=== PATIENT | female | born 1970 | race Hispanic/Latino ===

== ENCOUNTER 2018-07-22 15:46 | Emergency (ER) | payer OTHER ==
[~2018-07-22] VITALS: Ht 170.2 cm; Wt 76.2 kg
[~2018-07-22 15:46] MED LIST: TYLENOL WITH C1 EACH PO
--- OUTSIDE RECORDS SUMMARY | 2018-07-22 15:49 | XMS REPORT | Clinical Summary ---
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 Active escitalopram (LEXAPRO) 20 TAKE ONE (1) 5 MG tablet TABLET(S) BY 8 MOUTH ONCE A DAY FOR 30 DAYS. Active MINIVELLE 0.0375 mg/24 hr APPLY ONE (1) 11 PATCH(ES) TO 8 SKIN TWO TIMES WEEKLY. Active omeprazole (PriLOSEC) 40 TAKE ONE (1) 5 MG capsule CAPSULE(S) BY 8 MOUTH ONCE A DAY. Active zolpidem (AMBIEN) 10 mg TAKE ONE (1) 0 tablet TABLET(S) BY 8 MOUTH NIGHTLY NEEDED. Active SUMAtriptan (IMITREX) 100 TAKE ONE (1) 5 MG tablet TABLET(S) BY 8 MOUTH ONCE A DAY NEEDED. Active METHYLSCOPOLAMINE NITRATE 0 (METHSCOPOLAMINE NITRATE, BULK,) 100 % powder Active atorvastatin (LIPITOR) 20 Take 20 mg by 0 MG tablet mouth daily. Default OP ins 10/27/2018 Active montelukast (SINGULAIR) Take 1 tablet 30 tablet 3 10 mg tablet (10 mg total) 8 by mouth nightly. 09/12/2017 methylPREDNISolone follow 21 tablet 0 (MEDROL DOSEPAK) 4 mg package 7 tablet directions 09/25/2017 amoxicillin-pot Take 1 tablet 20 tablet 0 clavulanate (AUGMENTIN) by mouth 2 8 875-125 mg per (two) times a tabletIndications: day for 10 Hoarseness, Chronic cough days. 10/15/2017 benzonatate (TESSALON Take 1 30 capsule 1 PERLES) 100 MG capsule (100 8 capsuleIndications: mg total) by Chronic cough mouth 3 (three) times a day as needed for cough for up to 30 days. 11/03/2017 clindamycin (CLEOCIN HCL) Take 1 21 capsule 0 300 MG capsule capsule (300 8 mg total) by mouth 3 (three) times a day for 7 days. 11/03/2017 mupirocin (BACTROBAN) 2 % Apply 20 g 1 ointment topically 3 8 (three) times a day for 7 days. 05/10/2018 cefpodoxime (VANTIN) 200 Take 1 tablet 14 tablet 0 MG tablet (200 mg 8 total) by mouth 2 (two) times a day for 7 days. Active Problems Problem Noted Date Diffuse cellulitis of face 10/27/2017 Chronic cough 09/15/2017 Hoarseness 09/08/2017 Encounters Care Team Description Date Type Specialty Inna Serna MD Dysuria (Primary Dx); Recurrent UTI (urinary tract infection); Urgency incontinence; OAB (overactive bladder) 05/16/2018 Procedure visit Urology Sue Michael MA Recurrent UTI (Primary Dx) 05/03/2018 Telephone Urology Inna Serna MD IZA (stress urinary incontinence, female) (Primary Dx); OAB (overactive bladder); Urinary frequency; Hypertonicity of bladder; Left upper quadrant pain; Recurrent UTI (urinary tract infection); Calculus of kidney 04/30/2018 Office Visit Urology Inna Serna MD 04/17/2018 Telephone Urology Calderon Palacios MD Hoarseness (Primary Dx); Diffuse cellulitis of face 10/27/2017 Office Visit Otolaryngology Cash Calvillo MD 10/18/2017 Anesthesia General Surgery Event Calderon Palacios MD LARYNGOSCOPY, MICRO DIRECT W/ BIOPSY 10/18/2017 Surgery General Surgery Calderon Palacios MD Preop testing 10/18/2017 [facility] General Surgery Encounter Calderon Palacios MD 10/17/2017 Hospital Radiology Encounter Calderon Palacios MD Preop testing (Primary Dx) 10/17/2017 Pre-Admit Pre-Admission Testing Testing Appointment Calderon Palacios MD Hoarseness (Primary Dx); Chronic cough 10/02/2017 Office Visit Otolaryngology Calderon Palacios MD Hoarseness (Primary Dx); Chronic cough 09/15/2017 Office Visit Otolaryngology Calderon Palacios MD Hoarseness (Primary Dx) 09/08/2017 Office Visit Otolaryngology Rob Gray MD Sore throat (Primary Dx) 09/07/2017 Emergency Emergency Medicine after 07/21/2017 Family History Medical History Relation Name Comments Thyroid cancer Father Cancer Mother Diabetes Mother Heart disease Mother Hypertension Mother Relation Name Status Comments Father Alive Mother Alive Social History Date Tobacco Use Types Packs/Day Years Used Former Smoker Cigarettes 1 15 Smokeless Tobacco: Never Used Alcohol Use Drinks/Week oz/Week Comments No Sex Assigned at Date Recorded Not on file Industry Job Start Date Occupation Not on file Not on file Not on file Travel End Travel History Travel Start No recent travel history available. Last Filed Vital Signs Time Taken Vital Sign Reading 10/18/2017 1:23 PM LEGAL SUPPORT SPECIALIST Blood Pressure 134/74 10/18/2017 1:23 PM LEGAL SUPPORT SPECIALIST Pulse 61 10/18/2017 12:36 PM LEGAL SUPPORT SPECIALIST Temperature 36.8 C (98.2 F) 10/18/2017 1:23 PM LEGAL SUPPORT SPECIALIST Respiratory Rate 15 10/18/2017 1:23 PM LEGAL SUPPORT SPECIALIST Oxygen Saturation 98% - Inhaled Oxygen - Concentration 10/18/2017 9:04 AM LEGAL SUPPORT SPECIALIST Weight 77 kg (169 lb 11.2 oz) 10/18/2017 9:04 AM LEGAL SUPPORT SPECIALIST Height 170.2 cm (5' 7") 10/18/2017 9:04 AM LEGAL SUPPORT SPECIALIST Body Mass Index 26.58 Plan of Treatment Health Maintenance Due Date Last Done Comments CERVICAL CANCER SCREENING 1993 INFLUENZA VACCINE 04/11/2018 Procedures Comments Procedure Name Priority Date/Time Associated Diagnosis URINE CULTURE Routine 05/16/2018 Dysuria 2:17 PM CDT POC UROFLOWMETRY Routine 05/16/2018 Dysuria 2:16 PM CDT [id number] Routine 05/16/2018 Dysuria 2:16 PM CDT POC URINALYSIS DIPSTICK Routine 05/16/2018 Dysuria 12:49 PM CDT URINALYSIS, AUTOMATED Routine 04/30/2018 IZA (stress urinary WITH MICROSCOPY 1:39 PM CDT incontinence, female) URINE CULTURE Routine 04/30/2018 IZA (stress urinary 1:39 PM CDT incontinence, female) [id number] Routine 04/30/2018 IZA (stress urinary 12:27 PM CDT incontinence, female) POC URINALYSIS DIPSTICK Routine 04/30/2018 IZA (stress urinary 12:26 PM CDT incontinence, female) SURGICAL PATHOLOGY Routine 10/18/2017 REQUEST 11:47 AM LEGAL SUPPORT SPECIALIST SD AN ELECTIVE Routine 10/18/2017 ENDOTRACHEAL AIRWAY 11:43 AM LEGAL SUPPORT SPECIALIST Procedure Note - Donavon Holt CRNA - 10/18/2017 11:42 AM LEGAL SUPPORT SPECIALIST Airway Date/Time: 10/18/2017 1:36 AM Performed by: DONAVON HOLT Authorized by: CASH CALVILLO Location: OR Urgency: Elective Difficult Airway: No Anesthesio logist: CASH CALVILLO Resident/C RNA/AA: DONAVON HOTL Performed by: resident/C RNA and resident/C RNA/AA Preoxygena randy with 100% O2: Yes C-spine Precaution s Maintained Throughout : Yes Mask Ventilatio n: Easy mask Final Airway Type: Endotrache al airway Final Endotrache al Airway: ETT Cuffed: Yes Technique Used: Direct laryngosco py Insertion Site: Oral Blade Type: Burton Laryngosco pe Blade/Vide olaryngosc ope Blade Size: 2 ETT Size (mm): 6.0 Cuff at minimum occlusion pressure: Yes Measured from: Lips ETT to Lips (cm): 22 Placement Verified by: CO2 detection, direct visualizat ion and equal breath sounds Laryngosco pic view: Grade IIa - partial view of glottis Rapid Sequence Induction (RSI): No Modified RSI: No Number of Attempts at Approach: 1 Teeth intact, atraumatic intubation LARYNGOSCOPY, DIRECT 10/18/2017 HOARSENESS 10:45 AM LEGAL SUPPORT SPECIALIST R49.0 ECG 12-LEAD Routine 10/17/2017 Preop testing 1:45 PM LEGAL SUPPORT SPECIALIST XR CHEST 2 VW Routine 10/17/2017 Preop testing 1:16 PM LEGAL SUPPORT SPECIALIST PARTIAL THROMBOPLASTIN Routine 10/17/2017 Preop testing TIME (PTT) 12:26 PM LEGAL SUPPORT SPECIALIST PROTHROMBIN TIME WITH INR Routine 10/17/2017 Preop testing 12:26 PM LEGAL SUPPORT SPECIALIST CBC HEMOGRAM Routine 10/17/2017 Preop testing 12:26 PM LEGAL SUPPORT SPECIALIST ECG ED PRELIMINARY Routine 09/07/2017 INTERPRETATION 9:53 PM LEGAL SUPPORT SPECIALIST STREP SCREEN CULTURE Routine 09/07/2017 9:43 PM LEGAL SUPPORT SPECIALIST XR CHEST 2 VW STAT 09/07/2017 5:18 PM LEGAL SUPPORT SPECIALIST ECG 12-LEAD STAT 09/07/2017 5:01 PM LEGAL SUPPORT SPECIALIST URINALYSIS SCREEN AND STAT 09/07/2017 MICROSCOPY, WITH REFLEX 4:57 PM LEGAL SUPPORT SPECIALIST TO CULTURE HCG QUALITATIVE, URINE STAT 09/07/2017 SCREEN 4:57 PM LEGAL SUPPORT SPECIALIST URINE CULTURE STAT 09/07/2017 4:57 PM LEGAL SUPPORT SPECIALIST ZZESTIMATED GFR STAT 09/07/2017 4:50 PM LEGAL SUPPORT SPECIALIST TROPONIN STAT 09/07/2017 4:50 PM LEGAL SUPPORT SPECIALIST B NATRIURETIC PEPTIDE STAT 09/07/2017 4:50 PM LEGAL SUPPORT SPECIALIST MAGNESIUM LEVEL STAT 09/07/2017 4:50 PM LEGAL SUPPORT SPECIALIST HC COMPLETE BLD COUNT STAT 09/07/2017 W/AUTO DIFF 4:50 PM LEGAL SUPPORT SPECIALIST BASIC METABOLIC PANEL STAT 09/07/2017 4:50 PM LEGAL SUPPORT SPECIALIST GROUP A STREP, RAPID Routine 09/07/2017 ANTIGEN 4:50 PM LEGAL SUPPORT SPECIALIST INFLUENZA ANTIGEN Routine 09/07/2017 4:50 PM LEGAL SUPPORT SPECIALIST after 07/21/2017 Results * Urine culture (05/16/2018 2:17 PM CDT) Only the most recent of 3 results within the time period is included. Urine culture SEE NOTE [facility] Comment: [place] CULTURE, URINE, ROUTINE MICRO NUMBER:[id number] TEST STATUS: FINAL SPECIMEN SOURCE: URINE SPECIMEN QUALITY:ADEQUATE RESULT: Multiple organisms present, each less than 10,000 CFU/mL. These organisms, commonly found on external and internal genitalia, are considered to be colonizers. No further testing performed. Specimen Urine Resulting Agency Comment Performing Organization Information: Site ID: [id number] Name: [facility] Address: [address] [place] [id number] Director: Donna Christiansen Performing Organization Address City/State/Zipcode [place] [address] * POC BLADDER SCAN/PVR (05/16/2018 2:16 PM CDT) Only the most recent of 2 results within the time period is included. Specimen Urine Impressions Performed At P[facility]- 15 * POC uroflowmetry (05/16/2018 2:16 PM CDT) Flow rate 176 ml/sec Specimen Urine * POC urinalysis dipstick (05/16/2018 12:49 PM CDT) Only the most recent of 2 results within the time period is included. Color urine, POC Yellow Clarity urine, POC Clear Glucose urine, POC Negative Negative Bilirubin urine, POC Negative Negative Ketones urine, POC Negative Negative Specific gravity urine, 1.025 1.005 - 1.030 POC Blood urine, POC Trace (A) Negative pH urine, POC 6.5 5.0, 5.5, 6.0, 6.5, 7.0, 7.5, 8.0, 8.5 Protein urine, POC Negative Negative Urobilinogen urine, POC <2.0 <2.0 Nitrite urine, POC Negative Negative Leukocyte esterase urine, Negative Negative POC Specimen Urine * Urinalysis, automated with microscopy (04/30/2018 1:39 PM CDT) Color, UA ORANGE (A) YELLOW [facility] [place] Appearance TURBID (A) CLEAR [facility] [place] Specific gravity, urine 1.023 1.001 - 1.035 [facility] [place] pH, urine 6.0 5.0 - 8.0 [facility] [place] Glucose, urine TRACE (A) NEGATIVE [facility] [place] Bilirubin, UA NEGATIVE NEGATIVE [facility] [place] Ketones, UA NEGATIVE NEGATIVE [facility] [place] Occult blood, urine NEGATIVE NEGATIVE [facility] [place] Protein, UA NEGATIVE NEGATIVE [facility] [place] Nitrite, UA POSITIVE (A) NEGATIVE [facility] [place] Leukocyte esterase, UA NEGATIVE NEGATIVE [facility] [place] WBC, UA 0-5 < OR=5 /HPF [facility] [place] RBC, UA 0-2 < OR=2 /HPF [facility] [place] Squamous epithelial 0-5 < OR=5 /HPF [facility] cells, UA [place] Bacteria, UA MANY (A) NONE SEEN /HPF [facility] [place] Calcium oxalate crystals, FEW NONE OR FEW /HPF [facility] UA [place] Hyaline casts, UA NONE SEEN NONE SEEN /LPF [facility] [place] Specimen Urine Resulting Agency Comment Performing Organization Information: Site ID: [id number] Name: [facility] Address: [address] [place] [id number] Director: Donna Christiansen Performing Organization Address City/[facility] Phone Number [facility] [place] [phone] * Surgical pathology request (10/18/2017 11:47 AM LEGAL SUPPORT SPECIALIST) Case number [facility] DEPARTMENT OF PATHOLOGY AND GENOMIC MEDICINE Surgical pathology report [facility] DEPARTMENT OF PATHOLOGY AND GENOMIC MEDICINE Result status [facility] DEPARTMENT OF PATHOLOGY AND GENOMIC MEDICINE Performing Organization Address City/State/[facility] Cent[facility] Phone Number [address] [place] [address] PATHOLOGY AND GENOMIC MEDICINE * ECG 12 lead (10/17/2017 1:45 PM LEGAL SUPPORT SPECIALIST) Only the most recent of 2 results within the time period is included. Ventricular rate HM MUSE Atrial rate [facility] MUSE SD interval [facility] MUSE QRSD interval [facility] MUSE QT interval [facility] MUSE QTC interval [facility] MUSE P axis 1 [facility] MUSE QRS axis 1 [facility] MUSE T wave axis [facility] MUSE EKG impression [facility] MUSE Performing Organization Address [facility] Cent[facility]ode Phone Number [facility] MUSE [address] [place] [address] * XR Chest 2 Vw (10/17/2017 1:16 PM LEGAL SUPPORT SPECIALIST) Only the most recent of 2 results within the time period is included. Narrative Performed At EXAMINATION:XR CHEST 2 VW [facility] CLINICAL HISTORY:Z01.818 Encounter for other preprocedural examination, preop COMPARISON:September 07, 2017 FINDINGS: The heart size is within normal limits. The mediastinum appears unremarkable. The lungs are free of acute abnormalities. IMPRESSION: No acute finding is visualized [id number] Procedure Note Interface, Radiology Results Incoming - 10/17/2017 1:32 PM LEGAL SUPPORT SPECIALIST EXAMINATION: XR CHEST 2 VW CLINICAL HISTORY: Z01.818 Encounter for other preprocedural examination, preop COMPARISON: September 07, 2017 FINDINGS: The heart size is within normal limits. The mediastinum appears unremarkable. The lungs are free of acute abnormalities. IMPRESSION: No acute finding is visualized [id number] Performing Organization Address [facility] Phone Number [facility] [address] [place] [address] * Partial thromboplastin time, activated (10/17/2017 12:26 PM LEGAL SUPPORT SPECIALIST) PTT Comment: 23.0 - 36.0 sec [facility] DEPARTMENT OF PTT therapeutic range for PATHOLOGY AND unfractionated heparin is GENOMIC MEDICINE 61.0-112.0 seconds which corresponds to Anti-Xa 0.3-0.7 U/ml. Specimen Blood Performing Organization Address [facility] Phone Number [facility] DEPARTMENT [address] [place] [address] PATHOLOGY AND GENOMIC MEDICINE * Prothrombin time with INR (10/17/2017 12:26 PM LEGAL SUPPORT SPECIALIST) Prothrombin time 12.0 - 15.0 sec [facility] DEPARTMENT OF PATHOLOGY AND GENOMIC MEDICINE INR Comment: [facility] DEPARTMENT OF The International Normalized PATHOLOGY AND Ratio (INR) is a therapeutic GENOMIC MEDICINE monitoring tool for patients who are stable on oral anticoagulant therapy. An INR of 2.0-3.0 is suggested for deep vein thrombosis/pulmonary embolism. Specimen Blood Performing Organization Address [facility] Phone Number [facility] DEPARTMENT [address] [place] [address] PATHOLOGY [facility] MEDICINE * CBC hemogram (10/17/2017 12:26 PM LEGAL SUPPORT SPECIALIST) WBC 4.50 - 11.00 k/uL [facility] DEPARTMENT OF PATHOLOGY AND GENOMIC MEDICINE RBC 4.20 - 5.50 m/uL [facility] DEPARTMENT OF PATHOLOGY AND GENOMIC MEDICINE HGB 12.0 - 16.0 g/dL [facility] DEPARTMENT OF PATHOLOGY AND GENOMIC MEDICINE HCT 37.0 - 47.0 % [facility] DEPARTMENT OF PATHOLOGY AND GENOMIC MEDICINE MCV (L) 82.0 - 100.0 fL [facility] DEPARTMENT OF PATHOLOGY AND GENOMIC MEDICINE MCH 27.0 - 34.0 pg [facility] DEPARTMENT OF PATHOLOGY AND GENOMIC MEDICINE MCHC 31.0 - 37.0 g/dL [facility] DEPARTMENT OF PATHOLOGY AND GENOMIC MEDICINE RDW - SD 37.0 - 55.0 fL [facility] DEPARTMENT OF PATHOLOGY AND GENOMIC MEDICINE MPV 8.8 - 13.2 fL [facility] DEPARTMENT OF PATHOLOGY AND GENOMIC MEDICINE Platelet count 150 - 400 k/uL [facility] DEPARTMENT OF PATHOLOGY AND GENOMIC MEDICINE Nucleated RBC /100 WBC [facility] DEPARTMENT OF PATHOLOGY AND GENOMIC MEDICINE Specimen Blood Performing Organization Address City/State/Zipcode Phone Number [facility] [address] [place] [phone] PATHOLOGY [facility] MEDICINE * ECG ED Preliminary Interpretation - NOT AN ORDER (09/07/2017 9:53 PM LEGAL SUPPORT SPECIALIST) Narrative Performed At Rob Gray MD 09/07/20179:53 PM ECG ED Preliminary Interpretation - Not an Order Performed by: ROB GRAY Authorized by: ROB GRAY ECG reviewed by ED Physician in the absence of a nurse advocate: yes Rate: ECG rate:77 ECG rate assessment: normal Rhythm: Rhythm: sinus rhythm Ectopy: Ectopy: PVCs ST segments: ST segments:Normal T waves: T waves: normal * Strep screen culture (09/07/2017 9:43 PM LEGAL SUPPORT SPECIALIST) Strep screen culture Comment: [facility] DEPARTMENT OF isolate Specimen Information PATHOLOGY AND Specimen Source: Throat GENOMIC MEDICINE Specimen Site: Not otherwise specified Specimen Throat - Not otherwise specified Performing Organization Address City/State/Zipcode Phone Number [facility] DEPARTMENT OF [address] [place] [address] PATHOLOGY AND GENOMIC MEDICINE * Urinalysis screen and microscopy, with reflex to culture (09/07/2017 4:57 PM LEGAL SUPPORT SPECIALIST) Specimen site [facility] DEPARTMENT OF PATHOLOGY AND GENOMIC MEDICINE Color, UA [facility] DEPARTMENT OF PATHOLOGY AND GENOMIC MEDICINE Appearance, UA [facility] DEPARTMENT OF PATHOLOGY AND GENOMIC MEDICINE Specific gravity, UA 1.001 - 1.035 [facility] DEPARTMENT OF PATHOLOGY AND GENOMIC MEDICINE pH, UA 5.0 - 8.5 [facility] DEPARTMENT OF PATHOLOGY AND GENOMIC MEDICINE Protein, UA (A) Negative [facility] DEPARTMENT OF PATHOLOGY AND GENOMIC MEDICINE Glucose, UA Negative [facility] DEPARTMENT OF PATHOLOGY AND GENOMIC MEDICINE Ketones, UA Negative [facility] DEPARTMENT OF PATHOLOGY AND GENOMIC MEDICINE Bilirubin, UA Negative [facility] DEPARTMENT OF PATHOLOGY AND GENOMIC MEDICINE Blood, UA (A) Negative [facility] DEPARTMENT OF PATHOLOGY AND GENOMIC MEDICINE Nitrite, UA Negative [facility] DEPARTMENT OF PATHOLOGY AND GENOMIC MEDICINE Urobilinogen, UA <2.0 [facility] DEPARTMENT OF PATHOLOGY AND GENOMIC MEDICINE Leukocyte esterase, UA Negative [facility] DEPARTMENT OF PATHOLOGY AND GENOMIC MEDICINE Epithelial cells, UA /HPF [facility] DEPARTMENT OF PATHOLOGY AND GENOMIC MEDICINE WBC, UA 0 - 4 /HPF [facility] DEPARTMENT OF PATHOLOGY AND GENOMIC MEDICINE RBC, UA 0 - 2 /HPF [facility] DEPARTMENT OF PATHOLOGY AND GENOMIC MEDICINE Bacteria, UA None seen [facility] DEPARTMENT OF PATHOLOGY AND GENOMIC MEDICINE Yeast, UA [facility] DEPARTMENT OF PATHOLOGY AND GENOMIC MEDICINE Yeast with pseudohyphae, [facility] DEPARTMENT [facility] PATHOLOGY AND GENOMIC MEDICINE Specimen Urine Performing Organization Address City/[facility] Phone Number [address] [place] [address] PATHOLOGY AND GENOMIC MEDICINE * hCG qualitative, urine screen (09/07/2017 4:57 PM LEGAL SUPPORT SPECIALIST) hCG qualitative, urine Comment: Negative [facility] DEPARTMENT OF The manufacturers stated PATHOLOGY AND sensitivity of HcG test for Divided MEDICINE serum is >/=10 mIU/ml and urine is >/=20mIU/ml. Specimen Urine Performing Organization Address City/[facility] Phone Number [address] [place] [address] PATHOLOGY [facility] GENOMIC MEDICINE * Estimated GFR (09/07/2017 4:50 PM LEGAL SUPPORT SPECIALIST) GFR Non Af Amer mL/min/1.73 m2 [facility] DEPARTMENT OF PATHOLOGY AND GENOMIC MEDICINE GFR Af Amer Comment: mL/min/1.73 m2 [facility] DEPARTMENT OF Chronic kidney disease: <60 PATHOLOGY AND mL/min/1.73m2 GENOMIC MEDICINE Kidney failure: <15 mL/min/1.73m2 The estimated GFR is calculated from the IDMS-traceable Modification of Diet in Renal Disease Equation. The accuracy of the calculation is poor when the creatinine is normal. Calculated values >90 mL/min/1.73m2 are not reported. This equation has not been validated in children (<18 years), women, the elderly (>70 years), or ethnic groups other than Caucasians and Americans. Specimen Plasma specimen Performing Organization Address [facility] Phone Number [address] [place] [address] PATHOLOGY AND [facility] * Troponin (09/07/2017 4:50 PM LEGAL SUPPORT SPECIALIST) Troponin Comment: 0.000 - 0.300 ng/mL [facility] DEPARTMENT OF 0.30 - 1.49 PATHOLOGY AND ng/mlMay [facility] MEDICINE indicate increased risk of acute coronary syndrome. >=1.5 ng/ml Consistent with acute myocardial infarction. The diagnostic value of a single normal or non-diagnostic result is questionable.Serial samples at 2-6 hour intervals are required to rule out acute myocardial injury. Specimen Plasma specimen Performing Organization Address [facility] Phone Number [address] [place] [address] [facility] * Group A strep, rapid antigen (09/07/2017 4:50 PM LEGAL SUPPORT SPECIALIST) Group A strep, rapid Comment: [facility] DEPARTMENT OF antigen result Specimen Information PATHOLOGY AND Specimen Source: Throat GENOMIC MEDICINE Specimen Site: Not otherwise specified Specimen Throat - Not otherwise specified Performing Organization Address [facility] Phone Number [address] [place] [address] PATHOLOGY AND Divided [facility] * CBC with platelet and differential (09/07/2017 4:50 PM LEGAL SUPPORT SPECIALIST) WBC 4.50 - 11.00 k/uL [facility] DEPARTMENT OF PATHOLOGY AND GENOMIC MEDICINE RBC 4.20 - 5.50 m/uL [facility] DEPARTMENT OF PATHOLOGY AND GENOMIC MEDICINE HGB 12.0 - 16.0 g/dL [facility] DEPARTMENT OF PATHOLOGY AND GENOMIC MEDICINE HCT (L) 37.0 - 47.0 % [facility] OF PATHOLOGY AND GENOMIC MEDICINE MCV (L) 82.0 - 100.0 fL [facility] DEPARTMENT OF PATHOLOGY AND GENOMIC MEDICINE MCH 27.0 - 34.0 pg [facility] DEPARTMENT OF PATHOLOGY AND GENOMIC MEDICINE MCHC 31.0 - 37.0 g/dL [facility] DEPARTMENT OF PATHOLOGY AND GENOMIC MEDICINE RDW - SD 37.0 - 55.0 fL [facility] DEPARTMENT OF PATHOLOGY AND GENOMIC MEDICINE MPV 8.8 - 13.2 fL [facility] DEPARTMENT OF PATHOLOGY AND GENOMIC MEDICINE Platelet count 150 - 400 k/uL [facility] DEPARTMENT OF PATHOLOGY AND GENOMIC MEDICINE Nucleated RBC /100 WBC [facility] DEPARTMENT OF PATHOLOGY AND GENOMIC MEDICINE Neutrophils 39.0 - 69.0 % [facility] DEPARTMENT OF PATHOLOGY AND GENOMIC MEDICINE Lymphocytes 25.0 - 45.0 % [facility] DEPARTMENT OF PATHOLOGY AND GENOMIC MEDICINE Monocytes 0.0 - 10.0 % [facility] DEPARTMENT OF PATHOLOGY AND GENOMIC MEDICINE Eosinophils 0.0 - 5.0 % [facility] DEPARTMENT OF PATHOLOGY AND GENOMIC MEDICINE Basophils 0.0 - 1.0 % [facility] DEPARTMENT OF PATHOLOGY AND GENOMIC MEDICINE Immature granulocytes Comment: "Immature 0.0 - 1.0 % [facility] DEPARTMENT OF granulocytes" (promyelocytes, PATHOLOGY AND myelocytes, metamyelocytes) [facility] Specimen Blood Performing Organization Address [facility] Phone Number [address] [place] [address] PATHOLOGY [facility] * Influenza antigen (09/07/2017 4:50 PM LEGAL SUPPORT SPECIALIST) Influenza antigen Comment: [facility] DEPARTMENT OF Specimen Information PATHOLOGY AND Specimen Source: [facility] Specimen Site: Not specified Specimen Nares - Not specified Performing Organization Address [facility] Phone Number [address] [place] [address] [facility] * B natriuretic peptide (09/07/2017 4:50 PM LEGAL SUPPORT SPECIALIST) BNP 0 - 100 pg/mL [facility] PATHOLOGY AND GENOMIC MEDICINE Specimen Blood Performing Organization Address [facility] Phone Number [address] [place] [address] [facility] * Magnesium level (09/07/2017 4:50 PM LEGAL SUPPORT SPECIALIST) Magnesium 1.6 - 2.6 mg/dL [facility] OF PATHOLOGY AND GENOMIC MEDICINE Specimen Plasma specimen Performing Organization Address [facility] Phone Number [facility] [place] [address] [place] [address] PATHOLOGY AND GENOMIC MEDICINE * Basic metabolic panel (09/07/2017 4:50 PM LEGAL SUPPORT SPECIALIST) Sodium 135 - 148 mEq/L [facility] DEPARTMENT OF PATHOLOGY AND GENOMIC MEDICINE Potassium 3.5 - 5.0 mEq/L [facility] DEPARTMENT OF PATHOLOGY AND GENOMIC MEDICINE Chloride 98 - 112 mEq/L [facility] DEPARTMENT OF PATHOLOGY AND GENOMIC MEDICINE CO2 24 - 31 mEq/L [facility] DEPARTMENT OF PATHOLOGY AND GENOMIC MEDICINE Anion gap Comment: 7 - 15 mEq/L [facility] DEPARTMENT OF Starting from December PATHOLOGY AND , anion gap calculation GENOMIC MEDICINE no longer incorporates potassium. Please note the change. BUN 6 - 20 mg/dL [facility] DEPARTMENT OF PATHOLOGY AND GENOMIC MEDICINE Creatinine 0.5 - 0.9 mg/dL [facility] DEPARTMENT OF PATHOLOGY AND GENOMIC MEDICINE Glucose 65 - 99 mg/dL [facility] DEPARTMENT OF PATHOLOGY AND GENOMIC MEDICINE Calcium 8.3 - 10.2 mg/dL [facility] DEPARTMENT OF PATHOLOGY AND GENOMIC MEDICINE Specimen Plasma specimen Performing Organization Address [facility] Phone Number [facility] [address] [place] [address] PATHOLOGY AND GENOMIC MEDICINE after 07/21/2017 Insurance Payer Benefit Subscriber ID Type Phone Address Plan / Group CIG[employer] CIGNA OPEN xxxxxxxxxxx O ACCESS/NET WORK Advance Directives Patient has advance care planning documents on file. For more information, mina owens contact: Mika Brooke [address] [place] [address]
--- OUTSIDE RECORDS SUMMARY | 2018-07-22 15:49 | XMS REPORT | Summary of Care ---
Author Author Stacie Mann R.N. Unknown Address [facility] Phone Unavailable Care Team Providers Care Broacher Name Role Phone WANG RUBI M.D. Unavailable Unavailable Unavailable Unavailable Functional Status Name Dates Details Functional status health issues are not documented Status: Name Dates Details Cognitive status health issues are not documented Status: Problems Name Dates Details Right elbow pain (719.42, M25.521) Status: Active Lateral epicondylitis of right elbow (726.32, M77.11) Status: Active Medications Name Dates Details Diclofenac Sodium 1 % Transdermal Gel APPLY TO LOWER EXTREMITIES, 4 GM OF GEL TO AFFECTED AREA 4 TIMES DAILY. DO NOT APPLY MORE THAN 16 GM DAILY TO ANY ONE AFFECTED JOINT. Quantity: 1 WANG RUBI M.D. * Start : 01-Jul-2016 Active Meloxicam 7.5 MG Oral Tablet ONE TAB PO BID WITH FOOD * Quantity: 60 Refills: 2 GREYSON Wei., WANG * Start : 01-Jul-2016 Active MethylPREDNISolone 4 MG Oral Tablet Therapy Pack TAKE DIRECTED ON PACKAGE. * Quantity: 1 Refills: 0 WANG RUBI M.D. * Start : 18-Aug-2017 Active 21 Tablet Pack Allergies and Adverse Reactions Name Dates Details Allergy history not documented Status: Procedures Procedure Dates Details Procedures not documented Immunization Name Dates Details Immunizations not documented Social History Name Dates Details Unknown if ever smoked Vital Signs Date Test Result Details No Known Vitals to report Results Date Description Value Details Results not documented Plan of Care Name Dates Details Planned Observations Planned Goals not documented Instructions Name Dates Details Instructions not documented Encounters Appointment; WANG RUBI M.D. Encounter Diagnosis: Problem not documented On: 18-Aug-2017 10:00 Appointment; WANG RUBI M.D. Encounter Diagnosis: Problem not documented On: 20-Oct-2017 9:15 Appointment; WANG RUBI M.D. Encounter Diagnosis: Problem not documented On: 19-Apr-2018 9:45
[2018-07-22 16:22] VITALS: BP 128/85
[2018-07-22] MEDS ORDERED: HYDROXYZINE HCL 25 MG TAB PO SCH (16:30)
== END 2018-07-22 16:30 | disposition home or self-care (01) ==
LOC: FSED 15:46
DX: L50.9 Urticaria, unspecified (principal)
CPT/HCPCS: 99282

== ENCOUNTER 2018-08-05 13:18 | Emergency (ER) | payer OTHER ==
[~2018-08-05] VITALS: Ht 170.2 cm; Wt 76.2 kg
--- OUTSIDE RECORDS SUMMARY | 2018-08-05 13:21 | XMS REPORT | Clinical Summary ---
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 Name Role Phone Mingo Cobb MD PCP [...] cellulitis of face 10/27/2017 Office Visit Otolaryngology Ryder Calvillo MD 10/18/2017 Anesthesia General Surgery Event Calderon Palacios MD LARYNGOSCOPY, MICRO DIRECT W/ BIOPSY 10/18/2017 Surgery General Surgery Calderon Palacios MD Preop testing 10/18/2017 [facility] General Surgery Encounter Calderon Palacios MD 10/17/2017 [...] (Primary Dx) 09/07/2017 Emergency Emergency Medicine after 08/04/2017 Family History Medical History Relation Name Comments [...] Taken Vital Sign Reading 10/18/2017 1:23 PM DESCRIPTIVE CATALOG LIBRARIAN Blood Pressure 134/74 10/18/2017 1:23 PM DESCRIPTIVE CATALOG LIBRARIAN Pulse 61 10/18/2017 12:36 PM DESCRIPTIVE CATALOG LIBRARIAN Temperature 36.8 C (98.2 F) 10/18/2017 1:23 PM DESCRIPTIVE CATALOG LIBRARIAN Respiratory Rate 15 10/18/2017 1:23 PM DESCRIPTIVE CATALOG LIBRARIAN Oxygen Saturation 98% - Inhaled Oxygen - Concentration 10/18/2017 9:04 AM DESCRIPTIVE CATALOG LIBRARIAN Weight 77 kg (169 lb 11.2 oz) 10/18/2017 9:04 AM DESCRIPTIVE CATALOG LIBRARIAN Height 170.2 cm (5' 7") 10/18/2017 9:04 AM DESCRIPTIVE CATALOG LIBRARIAN Body Mass Index 26.58 Plan of Treatment Health Maintenance Due Date Last Done Comments MMR VACCINES (1 of - 1973 Standard series) VARICELLA VACCINES (1 of 1985 2 - 2-dose adolescent series) CERVICAL CANCER SCREENING 1993 INFLUENZA VACCINE 04/11/2018 HEPATITIS B VACCINES Aged Out No longer eligible based on patient's age to complete this topic IPV VACCINES Aged Out No longer eligible based on patient's age to complete this topic MENINGOCOCCAL VACCINE Aged Out No longer eligible based on patient's age to complete this topic Procedures Comments Procedure Name Priority Date/Time Associated Diagnosis URINE CULTURE Routine 05/16/2018 Dysuria 2:17 PM CDT POC UROFLOWMETRY Routine 05/16/2018 Dysuria 2:16 PM CDT [id number] Routine 05/16/2018 Dysuria 2:16 PM CDT POC URINALYSIS DIPSTICK Routine 05/16/2018 Dysuria 12:49 PM CDT URINALYSIS, AUTOMATED Routine 04/30/2018 IZA (stress urinary WITH MICROSCOPY 1:39 PM CDT incontinence, female) URINE CULTURE Routine 04/30/2018 IZA (stress urinary 1:39 PM CDT incontinence, female) [id number] Routine 04/30/2018 IZA (stress urinary 12:27 PM CDT incontinence, female) POC URINALYSIS DIPSTICK Routine 04/30/2018 IZA (stress urinary 12:26 PM CDT incontinence, female) SURGICAL PATHOLOGY Routine 10/18/2017 REQUEST 11:47 AM DESCRIPTIVE CATALOG LIBRARIAN IA AN ELECTIVE Routine 10/18/2017 ENDOTRACHEAL AIRWAY 11:43 AM DESCRIPTIVE CATALOG LIBRARIAN Procedure Note - Donavon Holt CRNA - 10/18/2017 11:42 AM DESCRIPTIVE CATALOG LIBRARIAN Airway Date/Time: 10/18/2017 1:36 AM Performed by: DONAVON HOLT Authorized by: RYDER CALVILLO Location: OR Urgency: Elective Difficult Airway: No Anesthesio logist: RYDER CALVILLO Resident/C RNA/AA: DONAVON HOLT Performed by: resident/C RNA and resident/C RNA/AA [...] intubation LARYNGOSCOPY, DIRECT 10/18/2017 HOARSENESS 10:45 AM DESCRIPTIVE CATALOG LIBRARIAN R49.0 ECG 12-LEAD Routine 10/17/2017 Preop testing 1:45 PM DESCRIPTIVE CATALOG LIBRARIAN XR CHEST 2 VW Routine 10/17/2017 Preop testing 1:16 PM DESCRIPTIVE CATALOG LIBRARIAN PARTIAL THROMBOPLASTIN Routine 10/17/2017 Preop testing TIME (PTT) 12:26 PM DESCRIPTIVE CATALOG LIBRARIAN PROTHROMBIN TIME WITH INR Routine 10/17/2017 Preop testing 12:26 PM DESCRIPTIVE CATALOG LIBRARIAN CBC HEMOGRAM Routine 10/17/2017 Preop testing 12:26 PM DESCRIPTIVE CATALOG LIBRARIAN ECG ED PRELIMINARY Routine 09/07/2017 INTERPRETATION 9:53 PM DESCRIPTIVE CATALOG LIBRARIAN STREP SCREEN CULTURE Routine 09/07/2017 9:43 PM DESCRIPTIVE CATALOG LIBRARIAN XR CHEST 2 VW STAT 09/07/2017 5:18 PM DESCRIPTIVE CATALOG LIBRARIAN ECG 12-LEAD STAT 09/07/2017 5:01 PM DESCRIPTIVE CATALOG LIBRARIAN URINALYSIS SCREEN AND STAT 09/07/2017 MICROSCOPY, WITH REFLEX 4:57 PM DESCRIPTIVE CATALOG LIBRARIAN TO CULTURE HCG QUALITATIVE, URINE STAT 09/07/2017 SCREEN 4:57 PM DESCRIPTIVE CATALOG LIBRARIAN URINE CULTURE STAT 09/07/2017 4:57 PM DESCRIPTIVE CATALOG LIBRARIAN ZZESTIMATED GFR STAT 09/07/2017 4:50 PM DESCRIPTIVE CATALOG LIBRARIAN TROPONIN STAT 09/07/2017 4:50 PM DESCRIPTIVE CATALOG LIBRARIAN B NATRIURETIC PEPTIDE STAT 09/07/2017 4:50 PM DESCRIPTIVE CATALOG LIBRARIAN MAGNESIUM LEVEL STAT 09/07/2017 4:50 PM DESCRIPTIVE CATALOG LIBRARIAN HC COMPLETE BLD COUNT STAT 09/07/2017 W/AUTO DIFF 4:50 PM DESCRIPTIVE CATALOG LIBRARIAN BASIC METABOLIC PANEL STAT 09/07/2017 4:50 PM DESCRIPTIVE CATALOG LIBRARIAN GROUP A STREP, RAPID Routine 09/07/2017 ANTIGEN 4:50 PM DESCRIPTIVE CATALOG LIBRARIAN INFLUENZA ANTIGEN Routine 09/07/2017 4:50 PM DESCRIPTIVE CATALOG LIBRARIAN after 08/04/2017 Results * Urine culture (05/16/2018 2:17 PM CDT) Only the most recent of 3 results within the time period is included. Urine culture SEE NOTE [employer] Comment: [place] CULTURE, URINE, ROUTINE MICRO NUMBER:[id number] TEST STATUS: FINAL SPECIMEN SOURCE: URINE SPECIMEN QUALITY:ADEQUATE RESULT: Multiple organisms present, each less than 10,000 CFU/mL. These organisms, commonly found on external and internal genitalia, are considered to be colonizers. No further testing performed. Specimen Urine Resulting Agency Comment Performing Organization Information: Site ID: [id number] Name: [email or web address] Address: [address] [place] [phone] Director: Donna Christiansen Performing Organization Address City/State/Zipcode Phone Number [employer] [place] [phone] * POC BLADDER SCAN/PVR (05/16/2018 2:16 PM [...] PM CDT) Color, UA ORANGE (A) YELLOW [employer] [place] Appearance TURBID (A) CLEAR [employer] [place] Specific gravity, urine 1.023 1.001 - 1.035 [facility] [place] pH, urine 6.0 5.0 - 8.0 [facility] [place] Glucose, urine TRACE (A) NEGATIVE [facility] [place] Bilirubin, UA NEGATIVE NEGATIVE [facility] Ketones, UA NEGATIVE NEGATIVE [facility] Occult blood, urine NEGATIVE NEGATIVE [facility] Protein, UA NEGATIVE NEGATIVE [facility] Nitrite, UA POSITIVE (A) NEGATIVE [facility] [place] Leukocyte esterase, UA NEGATIVE NEGATIVE [facility] [place] WBC, UA 0-5 < OR=5 /HPF [facility] [place] RBC, UA 0-2 < OR=2 /HPF [facility] [place] Squamous epithelial 0-5 < OR=5 /HPF [facility] cells, UA [place] Bacteria, UA MANY (A) NONE SEEN /HPF [facility] [place] Calcium oxalate crystals, FEW NONE OR FEW /HPF [facility]A [place] Hyaline casts, UA NONE SEEN NONE SEEN /LPF [employer] [place] Specimen Urine Resulting Agency Comment Performing Organization Information: Site ID: [id number] Name: [email or web address] Address: [address] [place] [phone] Director: Donna Christiansen Performing Organization Address City/[facility] Phone Number [employer] [address] [address] * Surgical pathology request (10/18/2017 11:47 AM DESCRIPTIVE CATALOG LIBRARIAN) [facility] DEPARTMENT OF PATHOLOGY AND GENOMIC MEDICINE Surgical pathology report See link below for PDF Lab [facility] DEPARTMENT OF Report PATHOLOGY AND GENOMIC MEDICINE Result status This is Final Report to [facility] DEPARTMENT OF [id number] PATHOLOGY AND GENOMIC MEDICINE Performing Organization Address City/State/[facility] Cent[facility]ode Phone Number [facility] DEPARTMENT OF [address] [place] [address] [place] [address] PATHOLOGY AND GENOMIC MEDICINE * ECG 12 lead (10/17/2017 1:45 PM DESCRIPTIVE CATALOG LIBRARIAN) Only the most recent of 2 results within the time period is included. Ventricular rate 71 [facility] Atrial rate 71 [facility] IA interval 154 [facility] QRSD interval 84 [facility] QT interval 428 [facility] QTC interval 465 [facility] P axis 1 43 [facility] QRS axis 1 6 [facility] T wave axis 71 [facility] EKG impression Sinus rhythm with occasional [facility] premature ventricular complexes-Possible Left atrial enlargement-Nonspecific T wave abnormality-Prolonged QT-Abnormal ECG-In automated comparison with ECG of 07-SEP-2017 17:01,-No significant change was found- Performing Organization Address [facility] Phone Number [facility] MUSE [address] [place] [address] * XR Chest 2 Vw (10/17/2017 1:16 PM DESCRIPTIVE CATALOG LIBRARIAN) Only the most recent of 2 results within the time period is included. Narrative Performed At EXAMINATION:XR CHEST 2 VW RADIANT CLINICAL HISTORY:Z01.818 Encounter for other preprocedural examination, preop COMPARISON:September 07, 2017 FINDINGS: The heart size is within normal limits. The mediastinum appears unremarkable. The lungs are free of acute abnormalities. IMPRESSION: No acute finding is visualized [id number] Procedure Note Hm Interface, Radiology Results Incoming - 10/17/2017 1:32 PM DESCRIPTIVE CATALOG LIBRARIAN EXAMINATION: XR CHEST 2 VW CLINICAL HISTORY: Z01.818 Encounter for other preprocedural examination, preop COMPARISON: September 07, 2017 FINDINGS: The heart size is within normal limits. The mediastinum appears unremarkable. The lungs are free of acute abnormalities. IMPRESSION: No acute finding is visualized [id number] Performing Organization Address [facility] Phone Number [facility] [address] [place] [address] * Partial thromboplastin time, activated (10/17/2017 12:26 PM DESCRIPTIVE CATALOG LIBRARIAN) PTT 29.8 23.0 - 36.0 sec [facility] DEPARTMENT OF Comment: PATHOLOGY AND PTT therapeutic range for GENOMIC MEDICINE unfractionated heparin is 61.0-112.0 seconds which corresponds to Anti-Xa 0.3-0.7 U/ml. Specimen Blood Performing Organization Address [facility] Cent[facility]ode Phone Number [address] [place] [address] PATHOLOGY [facility] * Prothrombin time with INR (10/17/2017 12:26 PM DESCRIPTIVE CATALOG LIBRARIAN) Prothrombin time 12.5 12.0 - 15.0 sec [facility] DEPARTMENT PATHOLOGY AND [facility] MEDICINE INR 0.9 [facility] DEPARTMENT OF Comment: PATHOLOGY AND The International Normalized [facility] Ratio (INR) is a therapeutic monitoring tool for patients who are stable on oral anticoagulant therapy. An INR of 2.0-3.0 is suggested for deep vein thrombosis/pulmonary embolism. Specimen Blood Performing Organization Address [facility] Phone Number [address] [place] [address] PATHOLOGY [facility] * CBC hemogram (10/17/2017 12:26 PM DESCRIPTIVE CATALOG LIBRARIAN) WBC 5.52 4.50 - 11.00 k/uL [facility] DEPARTMENT OF PATHOLOGY AND GENOMIC MEDICINE RBC 4.53 4.20 - 5.50 m/uL [facility] DEPARTMENT OF PATHOLOGY AND GENOMIC MEDICINE HGB 12.8 12.0 - 16.0 g/dL [facility] DEPARTMENT OF PATHOLOGY AND GENOMIC MEDICINE HCT 37.0 37.0 - 47.0 % [facility] DEPARTMENT OF PATHOLOGY AND GENOMIC MEDICINE MCV 81.7 (L) 82.0 - 100.0 fL [facility] DEPARTMENT OF PATHOLOGY AND GENOMIC MEDICINE MCH 28.3 27.0 - 34.0 pg [facility] DEPARTMENT OF PATHOLOGY AND GENOMIC MEDICINE MCHC 34.6 31.0 - 37.0 g/dL [facility] DEPARTMENT OF PATHOLOGY AND GENOMIC MEDICINE RDW - SD 39.4 37.0 - 55.0 fL [facility] DEPARTMENT OF PATHOLOGY AND GENOMIC MEDICINE MPV 10.7 8.8 - 13.2 fL [facility] DEPARTMENT OF PATHOLOGY AND GENOMIC MEDICINE Platelet count 287 150 - 400 k/uL [facility] DEPARTMENT OF PATHOLOGY AND GENOMIC MEDICINE Nucleated RBC 0.00 /100 WBC [facility] DEPARTMENT OF PATHOLOGY AND GENOMIC MEDICINE Specimen Blood Performing Organization Address [facility] Centercode Phone Number [address] [place] [address] PATHOLOGY AND GENOMIC MEDICINE * ECG ED Preliminary Interpretation - NOT AN ORDER (09/07/2017 9:53 PM DESCRIPTIVE CATALOG LIBRARIAN) Narrative Performed At Rob Gray MD 09/07/20179:53 PM ECG ED Preliminary Interpretation - Not an Order Performed by: ROB GRAY Authorized by: ROB GRAY ECG reviewed by ED Physician in the absence of a lime hide inspector: yes Rate: ECG rate:77 ECG rate assessment: normal Rhythm: Rhythm: sinus rhythm Ectopy: Ectopy: PVCs ST segments: ST segments:Normal T waves: T waves: normal * Strep screen culture (09/07/2017 9:43 PM DESCRIPTIVE CATALOG LIBRARIAN) Strep screen culture No beta hemolytic Streptococci [facility] DEPARTMENT OF isolate isolated PATHOLOGY AND Comment: GENOMIC MEDICINE Specimen Information Specimen Source: Throat Specimen Site: Not otherwise specified Specimen Throat - Not otherwise specified Performing Organization Address City/State/Zipcode Phone Number [facility] DEPARTMENT OF [address] [place] [address] PATHOLOGY AND GENOMIC MEDICINE * Urinalysis screen and microscopy, with reflex to culture (09/07/2017 4:57 PM DESCRIPTIVE CATALOG LIBRARIAN) Specimen site Clean catch [facility] DEPARTMENT OF PATHOLOGY AND GENOMIC MEDICINE Color, UA Yellow [facility] DEPARTMENT OF PATHOLOGY AND GENOMIC MEDICINE Appearance, UA Slightly-Cloudy [facility] DEPARTMENT OF PATHOLOGY AND GENOMIC MEDICINE Specific gravity, UA 1.019 1.001 - 1.035 [facility] DEPARTMENT OF PATHOLOGY AND GENOMIC MEDICINE pH, UA 6.0 5.0 - 8.5 [facility] DEPARTMENT OF PATHOLOGY AND GENOMIC MEDICINE Protein, UA 1+ (A) Negative [facility] DEPARTMENT OF PATHOLOGY AND GENOMIC MEDICINE Glucose, UA Negative Negative [facility] DEPARTMENT OF PATHOLOGY AND GENOMIC MEDICINE Ketones, UA Negative Negative [facility] DEPARTMENT OF PATHOLOGY AND GENOMIC MEDICINE Bilirubin, UA Negative Negative [facility] DEPARTMENT OF PATHOLOGY AND GENOMIC MEDICINE Blood, UA Moderate (A) Negative [facility] DEPARTMENT OF PATHOLOGY AND GENOMIC MEDICINE Nitrite, UA Negative Negative [facility] DEPARTMENT OF PATHOLOGY AND GENOMIC MEDICINE Urobilinogen, UA Negative <2.0 [facility] DEPARTMENT OF PATHOLOGY AND GENOMIC MEDICINE Leukocyte esterase, UA Negative Negative [facility] DEPARTMENT OF PATHOLOGY AND GENOMIC MEDICINE Epithelial cells, UA Many /HPF [facility] DEPARTMENT OF PATHOLOGY AND GENOMIC MEDICINE WBC, UA 0-5 0 - 4 /HPF [facility] DEPARTMENT OF PATHOLOGY AND GENOMIC MEDICINE RBC, UA 0-5 0 - 2 /HPF [facility] DEPARTMENT OF PATHOLOGY AND GENOMIC MEDICINE Bacteria, UA None seen None seen [facility] DEPARTMENT OF PATHOLOGY AND GENOMIC MEDICINE Yeast, UA None seen [facility] DEPARTMENT OF PATHOLOGY AND GENOMIC MEDICINE Yeast with pseudohyphae, None seen [facility] DEPARTMENT OF UA PATHOLOGY AND GENOMIC MEDICINE Specimen Urine Performing Organization Address [facility] Phone Number [address] [place] [address] PATHOLOGY AND GENOMIC MEDICINE * hCG qualitative, urine screen (09/07/2017 4:57 PM DESCRIPTIVE CATALOG LIBRARIAN) hCG qualitative, urine Negative Negative [facility] DEPARTMENT OF Comment: PATHOLOGY AND The manufacturers stated GENOMIC MEDICINE sensitivity of HcG test for serum is >/=10 mIU/ml and urine is >/=20mIU/ml. Specimen Urine Performing Organization Address [facility] Phone Number [address] [place] [address] PATHOLOGY AND GENOMIC MEDICINE * Estimated GFR (09/07/2017 4:50 PM DESCRIPTIVE CATALOG LIBRARIAN) GFR Non Af Amer 77 mL/min/1.73 m2 [facility] DEPARTMENT OF PATHOLOGY AND GENOMIC MEDICINE GFR Af Amer >90 mL/min/1.73 m2 [facility] DEPARTMENT OF Comment: PATHOLOGY AND Chronic kidney disease: <60 GENOMIC MEDICINE mL/min/1.73m2 Kidney failure: <15 mL/min/1.73m2 The estimated GFR [...] Americans. Specimen Plasma specimen Performing Organization Address [facility] Cent[facility]ode Phone Number [address] [place] [address] PATHOLOGY AND [facility] MEDICINE * Troponin (09/07/2017 4:50 PM DESCRIPTIVE CATALOG LIBRARIAN) Troponin <0.300 0.000 - 0.300 ng/mL [facility] DEPARTMENT OF Comment: PATHOLOGY AND 0.30 - 1.49 GENOMIC MEDICINE ng/mlMay indicate increased risk of acute coronary syndrome. >=1.5 ng/ml Consistent with acute myocardial infarction. The diagnostic value of a single normal or non-diagnostic result is questionable.Serial samples at 2-6 hour intervals are required to rule out acute myocardial injury. Specimen Plasma specimen Performing Organization Address [facility]/Zipcode Phone Number [place] [address] [place] [address] PATHOLOGY AND GENOMIC MEDICINE * Group A strep, rapid antigen (09/07/2017 4:50 PM DESCRIPTIVE CATALOG LIBRARIAN) Group A strep, rapid Negative for Group A [facility] DEPARTMENT OF antigen result Streptococcus antigen. PATHOLOGY AND Comment: GENOMIC MEDICINE Specimen Information Specimen Source: Throat Specimen Site: Not otherwise specified Specimen Throat - Not otherwise specified Performing Organization Address [facility]ode Phone Number [place] [address] [place] [address] PATHOLOGY AND [facility] MEDICINE * CBC with platelet and differential (09/07/2017 4:50 PM DESCRIPTIVE CATALOG LIBRARIAN) WBC 8.92 4.50 - 11.00 k/uL [facility] PATHOLOGY AND GENOMIC MEDICINE RBC 4.51 4.20 - 5.50 m/uL [facility] PATHOLOGY AND GENOMIC MEDICINE HGB 12.5 12.0 - 16.0 g/dL [facility] DEPARTMENT PATHOLOGY AND GENOMIC MEDICINE HCT 36.0 (L) 37.0 - 47.0 % [facility] DEPARTMENT PATHOLOGY AND GENOMIC MEDICINE MCV 79.8 (L) 82.0 - 100.0 fL [facility] DEPARTMENT OF PATHOLOGY AND GENOMIC MEDICINE MCH 27.7 27.0 - 34.0 pg [facility] DEPARTMENT OF PATHOLOGY AND GENOMIC MEDICINE MCHC 34.7 31.0 - 37.0 g/dL [facility] DEPARTMENT OF PATHOLOGY AND GENOMIC MEDICINE RDW - SD 40.5 37.0 - 55.0 fL [facility] DEPARTMENT OF PATHOLOGY AND GENOMIC MEDICINE MPV 10.7 8.8 - 13.2 fL [facility] DEPARTMENT OF PATHOLOGY AND GENOMIC MEDICINE Platelet count 262 150 - 400 k/uL [facility] DEPARTMENT OF PATHOLOGY AND GENOMIC MEDICINE Nucleated RBC 0.00 /100 WBC [facility] DEPARTMENT OF PATHOLOGY AND GENOMIC MEDICINE Neutrophils 62.9 39.0 - 69.0 % [facility] DEPARTMENT OF PATHOLOGY AND GENOMIC MEDICINE Lymphocytes 28.5 25.0 - 45.0 % [facility] DEPARTMENT OF PATHOLOGY AND GENOMIC MEDICINE Monocytes 7.1 0.0 - 10.0 % [facility] DEPARTMENT OF PATHOLOGY AND GENOMIC MEDICINE Eosinophils 0.8 0.0 - 5.0 % [facility] DEPARTMENT OF PATHOLOGY AND GENOMIC MEDICINE Basophils 0.4 0.0 - 1.0 % [facility] DEPARTMENT OF PATHOLOGY AND GENOMIC MEDICINE Immature granulocytes 0.3Comment: "Immature 0.0 - 1.0 % [facility] DEPARTMENT OF granulocytes" (promyelocytes, PATHOLOGY AND myelocytes, metamyelocytes) GENOMIC [facility] Specimen Blood Performing Organization Address [facility] Phone Number [address] [place] [address] PATHOLOGY AND GENOMIC MEDICINE * Influenza antigen (09/07/2017 4:50 PM DESCRIPTIVE CATALOG LIBRARIAN) Influenza antigen Negative for Influenza A/B [facility] DEPARTMENT OF antigen. PATHOLOGY AND Comment: GENOMIC MEDICINE Specimen Information Specimen Source: Nares Specimen Site: Not specified Specimen Nares - Not specified Performing Organization Address [facility] Number [address] [place] [address] PATHOLOGY AND [facility] * B natriuretic peptide (09/07/2017 4:50 PM DESCRIPTIVE CATALOG LIBRARIAN) BNP 26 0 - 100 pg/mL [facility] DEPARTMENT OF PATHOLOGY AND [facility] MEDICINE Specimen Blood Performing Organization Address [facility] Number [address] [place] [address] PATHOLOGY AND [facility] * Magnesium level (09/07/2017 4:50 PM DESCRIPTIVE CATALOG LIBRARIAN) Magnesium 1.9 1.6 - 2.6 mg/dL [facility] DEPARTMENT OF PATHOLOGY AND GENOMIC MEDICINE Specimen Plasma specimen Performing Organization Address [facility] Phone Number [address] [place] [address] PATHOLOGY AND [facility] * Basic metabolic panel (09/07/2017 4:50 PM DESCRIPTIVE CATALOG LIBRARIAN) Sodium 137 135 - 148 mEq/L [facility] DEPARTMENT OF PATHOLOGY AND GENOMIC MEDICINE Potassium 3.5 3.5 - 5.0 mEq/L [facility] DEPARTMENT OF PATHOLOGY AND GENOMIC MEDICINE Chloride 98 98 - 112 mEq/L [facility] DEPARTMENT OF PATHOLOGY AND GENOMIC MEDICINE CO2 25 24 - 31 mEq/L [facility] DEPARTMENT OF PATHOLOGY AND GENOMIC MEDICINE Anion gap 14 7 - 15 mEq/L [facility] DEPARTMENT OF Comment: PATHOLOGY AND Starting from December GENOMIC MEDICINE , anion gap calculation no longer incorporates potassium. Please note the change. BUN 15 6 - 20 mg/dL [facility] DEPARTMENT OF PATHOLOGY AND GENOMIC MEDICINE Creatinine 0.8 0.5 - 0.9 mg/dL [facility] DEPARTMENT OF PATHOLOGY AND GENOMIC MEDICINE Glucose 85 65 - 99 mg/dL [facility] DEPARTMENT OF PATHOLOGY AND GENOMIC MEDICINE Calcium 9.3 8.3 - 10.2 mg/dL [facility] DEPARTMENT OF PATHOLOGY AND GENOMIC MEDICINE Specimen Plasma specimen Performing Organization Address City/State/[facility] Cent[facility]ode Phone Number [facility] [id number] [place] [address] [place] [address] PATHOLOGY AND GENOMIC MEDICINE after 08/04/2017 Insurance Payer Benefit Subscriber ID Type Phone Address Plan / Group CIG[employer] CIGNA OPEN xxxxxxxxxxx O ACCESS/NET WORK Advance Directives Patient has advance care planning documents on file. For more information, mina owens contact: Mika Brooke [address] [place] [address]
[2018-08-05] MEDS ORDERED: EPINEPHRINE HCL INJ 1 MG/ML AMP INJ ONE ×2 (14:00→15:00)
[2018-08-05] MEDS ORDERED: DIPHENHYDRAMINE HCL INJ 50 MG/ML VIAL IV ONE (14:00)
[2018-08-05] MEDS ORDERED: SODIUM CHLORIDE 0.9% 1000ML 1,000 ML ONE (14:00)
[2018-08-05] MEDS ORDERED: METHYLPREDNISOLONE SOD SUCC 40 MG/ML VIAL IV ONE (14:00)
[2018-08-05] MEDS ORDERED: METHYLPREDNISOLONE SOD SUCC 125 MG/2ML VIAL IV ONE (14:15)
[2018-08-05] MEDS ORDERED: ALBUTEROL SULF 0.083% NEB SOLN 3 ML NEB NEB STA (14:23)
[2018-08-05] MEDS ORDERED: FAMOTIDINE 20 MG/2 ML VIAL IV ONE (14:30)
[2018-08-05] MEDS ORDERED: PREDNISONE20 MG PO (17:15)
[2018-08-05] MEDS ORDERED: PEPCID20 MG PO (17:15)
[2018-08-05] MEDS ORDERED: EPINEPHRINE 11 MG/ML IM (17:15)
== END 2018-08-05 18:14 | disposition home or self-care (01) ==
LOC: FSED 13:18
DX: L50.0 Allergic urticaria (principal); T88.6XXA Anaphylactic reaction due to adverse effect of correct drug or medicament properly administered, initial encounter; T37.0X5A Adverse effect of sulfonamides, initial encounter; J98.01 Acute bronchospasm
CPT/HCPCS: 99284; J0171; J1200; J2920; J7030

== ENCOUNTER 2018-08-19 13:37 | Emergency (ER) | payer OTHER ==
[~2018-08-19] VITALS: Ht 170.2 cm; Wt 76.2 kg
[~2018-08-19 13:37] MED LIST changes: +EPINEPHRINE 11 MG/ML IM; +PEPCID20 MG PO; +PREDNISONE20 MG PO
--- OUTSIDE RECORDS SUMMARY | 2018-08-19 13:41 | XMS REPORT | Clinical Summary ---
Author Author [facility]win [facility]aker Organization Garwin Quaker Address Unknown Phone Unavailable Care Team Providers Care Dial Screw Assembler Name Role Phone Mingo Cobb MD PCP [...] Surgery Calderon Palacios MD Preop testing 10/18/2017 [facility] General Surgery Encounter Calderon Palacios MD [...] (Primary Dx) 09/07/2017 Emergency Emergency Medicine after 08/18/2017 Family History Medical History Relation Name Comments [...] Taken Vital Sign Reading 10/18/2017 1:23 PM CHAIN MAKER Blood Pressure 134/74 10/18/2017 1:23 PM CHAIN MAKER Pulse 61 10/18/2017 12:36 PM CHAIN MAKER Temperature 36.8 C (98.2 F) 10/18/2017 1:23 PM CHAIN MAKER Respiratory Rate 15 10/18/2017 1:23 PM CHAIN MAKER Oxygen Saturation 98% - Inhaled Oxygen - Concentration 10/18/2017 9:04 AM CHAIN MAKER Weight 77 kg (169 lb 11.2 oz) 10/18/2017 9:04 AM CHAIN MAKER Height 170.2 cm (5' 7") 10/18/2017 9:04 AM CHAIN MAKER Body Mass Index 26.58 Plan of Treatment [...] UROFLOWMETRY Routine 05/16/2018 Dysuria 2:16 PM CDT [id number] Routine 05/16/2018 Dysuria 2:16 PM CDT POC URINALYSIS DIPSTICK Routine 05/16/2018 Dysuria 12:49 PM CDT URINALYSIS, AUTOMATED Routine 04/30/2018 IZA (stress urinary WITH MICROSCOPY 1:39 PM CDT incontinence, female) URINE CULTURE Routine 04/30/2018 IZA (stress urinary 1:39 PM CDT incontinence, female) [id number] Routine 04/30/2018 IZA (stress urinary 12:27 PM CDT incontinence, female) POC URINALYSIS DIPSTICK Routine 04/30/2018 IZA (stress urinary 12:26 PM CDT incontinence, female) SURGICAL PATHOLOGY Routine 10/18/2017 REQUEST 11:47 AM CHAIN MAKER FL AN ELECTIVE Routine 10/18/2017 ENDOTRACHEAL AIRWAY 11:43 AM CHAIN MAKER Procedure Note - Donavon Holt CRNA - 10/18/2017 11:42 AM CHAIN MAKER Airway Date/Time: 10/18/2017 1:36 AM Performed by: [...] intubation LARYNGOSCOPY, DIRECT 10/18/2017 HOARSENESS 10:45 AM CHAIN MAKER R49.0 ECG 12-LEAD Routine 10/17/2017 Preop testing 1:45 PM CHAIN MAKER XR CHEST 2 VW Routine 10/17/2017 Preop testing 1:16 PM CHAIN MAKER PARTIAL THROMBOPLASTIN Routine 10/17/2017 Preop testing TIME (PTT) 12:26 PM CHAIN MAKER PROTHROMBIN TIME WITH INR Routine 10/17/2017 Preop testing 12:26 PM CHAIN MAKER CBC HEMOGRAM Routine 10/17/2017 Preop testing 12:26 PM CHAIN MAKER ECG ED PRELIMINARY Routine 09/07/2017 INTERPRETATION 9:53 PM CHAIN MAKER STREP SCREEN CULTURE Routine 09/07/2017 9:43 PM CHAIN MAKER XR CHEST 2 VW STAT 09/07/2017 5:18 PM CHAIN MAKER ECG 12-LEAD STAT 09/07/2017 5:01 PM CHAIN MAKER URINALYSIS SCREEN AND STAT 09/07/2017 MICROSCOPY, WITH REFLEX 4:57 PM CHAIN MAKER TO CULTURE HCG QUALITATIVE, URINE STAT 09/07/2017 SCREEN 4:57 PM CHAIN MAKER URINE CULTURE STAT 09/07/2017 4:57 PM CHAIN MAKER ZZESTIMATED GFR STAT 09/07/2017 4:50 PM CHAIN MAKER TROPONIN STAT 09/07/2017 4:50 PM CHAIN MAKER B NATRIURETIC PEPTIDE STAT 09/07/2017 4:50 PM CHAIN MAKER MAGNESIUM LEVEL STAT 09/07/2017 4:50 PM CHAIN MAKER HC COMPLETE BLD COUNT STAT 09/07/2017 W/AUTO DIFF 4:50 PM CHAIN MAKER BASIC METABOLIC PANEL STAT 09/07/2017 4:50 PM CHAIN MAKER GROUP A STREP, RAPID Routine 09/07/2017 ANTIGEN 4:50 PM CHAIN MAKER INFLUENZA ANTIGEN Routine 09/07/2017 4:50 PM CHAIN MAKER after 08/18/2017 Results * Urine culture (05/16/2018 2:17 PM CDT) Only the most recent of 3 results within the time period is included. Urine culture SEE NOTE [facility] Comment: POOLE CULTURE, URINE, ROUTINE MICRO NUMBER:[id number] TEST STATUS: FINAL SPECIMEN SOURCE: URINE SPECIMEN QUALITY:ADEQUATE RESULT: Multiple organisms present, each less than 10,000 CFU/mL. These organisms, commonly found on external and internal genitalia, are considered to be colonizers. No further testing performed. Specimen Urine Resulting Agency Comment Performing Organization Information: Site ID: [id number] Name: [employer] [facility] Address: [address] [place] [phone] Director: Donna Christiansen Performing Organization Address City/State/[place] [address] * POC BLADDER SCAN/PVR (05/16/2018 2:16 PM [...] PM CDT) Color, UA ORANGE (A) YELLOW [facility] [place] Appearance TURBID (A) CLEAR [facility] [place] Specific gravity, urine 1.023 1.001 - 1.035 [facility] [place] pH, urine 6.0 5.0 - 8.0 [facility] [place] Glucose, urine TRACE (A) NEGATIVE [facility] [place] Bilirubin, UA NEGATIVE NEGATIVE [facility] [place] Ketones, UA NEGATIVE NEGATIVE [facility] [place] Occult blood, urine NEGATIVE NEGATIVE [facility] [place] Protein, UA NEGATIVE NEGATIVE [facility] [place] Nitrite, UA POSITIVE (A) NEGATIVE [facility] [place] Leukocyte esterase, UA NEGATIVE NEGATIVE [facility] [place] WBC, UA 0-5 < OR=5 /HPF [facility] [place] RBC, UA 0-2 < OR=2 /HPF [facility] [place] Squamous epithelial 0-5 < OR=5 /HPF [facility] cells, [facility] [place] Bacteria, UA MANY (A) NONE SEEN /HPF [facility] [place] Calcium oxalate crystals, FEW NONE OR FEW /HPF [facility] UA [place] Hyaline casts, UA NONE SEEN NONE SEEN /LPF [facility] [place] Specimen Urine Resulting Agency Comment Performing Organization Information: Site ID: [id number] Name: [employer] [facility] Address: [address] [place] [phone] Director: Donna Christiansen Performing Organization Address [facility] Phone Number [employer] [place] [phone] * Surgical pathology request (10/18/2017 11:47 AM CHAIN MAKER) [facility] DEPARTMENT OF PATHOLOGY AND GENOMIC MEDICINE Surgical pathology report See link below for PDF Lab [facility] DEPARTMENT OF Report PATHOLOGY AND GENOMIC MEDICINE Result status This is Final Report to [facility] DEPARTMENT OF [id number] PATHOLOGY AND GENOMIC MEDICINE Performing Organization Address City/[facility]/Zipcode Phone Number [facility] DEPARTMENT [address] [place] [address] PATHOLOGY AND GENOMIC MEDICINE * ECG 12 lead (10/17/2017 1:45 PM CHAIN MAKER) Only the most recent of 2 results within the time period is included. Ventricular rate 71 [facility] Atrial rate 71 [facility] FL interval 154 [facility] QRSD interval 84 [facility] QT interval 428 [facility] QTC interval 465 [facility] P axis 1 43 [facility] QRS axis 1 6 [facility] T wave axis 71 [facility] MUSE EKG impression Sinus rhythm with occasional [facility] MUSE premature ventricular complexes-Possible Left atrial enlargement-Nonspecific T wave abnormality-Prolonged QT-Abnormal ECG-In automated comparison with ECG of 07-SEP-2017 17:01,-No significant change was found- Performing Organization Address [facility] Center[facility]ct Phone Number [facility] [address] [place] [address] * XR Chest 2 Vw (10/17/2017 1:16 PM CHAIN MAKER) Only the most recent of 2 results within the time period is included. Narrative Performed At EXAMINATION:XR CHEST 2 VW [facility]IANT CLINICAL HISTORY:Z01.818 Encounter for other preprocedural examination, preop COMPARISON:September 07, 2017 FINDINGS: The heart size is within normal limits. The mediastinum appears unremarkable. The lungs are free of acute abnormalities. IMPRESSION: No acute finding is visualized [id number] Procedure Note Hm Interface, Radiology Results Incoming - 10/17/2017 1:32 PM CHAIN MAKER EXAMINATION: XR CHEST 2 VW CLINICAL HISTORY: Z01.818 Encounter for other preprocedural examination, preop COMPARISON: September 07, 2017 FINDINGS: The heart size is within normal limits. The mediastinum appears unremarkable. The lungs are free of acute abnormalities. IMPRESSION: No acute finding is visualized [id number] Performing Organization Address [facility] Phone Number [facility] [address] [place] [address] * Partial thromboplastin time, activated (10/17/2017 12:26 PM CHAIN MAKER) PTT 29.8 23.0 - 36.0 sec [facility] DEPARTMENT OF Comment: PATHOLOGY AND PTT therapeutic range for [employer] MEDICINE unfractionated heparin is 61.0-112.0 seconds which corresponds to Anti-Xa 0.3-0.7 U/ml. Specimen Blood Performing Organization Address [facility] Phone Number [address] [place] [address] PATHOLOGY AND [facility] MEDICINE * Prothrombin time with INR (10/17/2017 12:26 PM CHAIN MAKER) Prothrombin time 12.5 12.0 - 15.0 sec [facility] DEPARTMENT OF PATHOLOGY AND GENOMIC MEDICINE INR 0.9 [facility] DEPARTMENT OF Comment: PATHOLOGY AND The International Normalized GENOMIC MEDICINE Ratio (INR) is a therapeutic monitoring tool for patients who are stable on oral anticoagulant therapy. An INR of 2.0-3.0 is suggested for deep vein thrombosis/pulmonary embolism. Specimen Blood Performing Organization Address [facility] Phone Number [address] [place] [address] PATHOLOGY AND GENOMIC MEDICINE * CBC hemogram (10/17/2017 12:26 PM CHAIN MAKER) WBC 5.52 4.50 - 11.00 k/uL [facility] DEPARTMENT OF PATHOLOGY AND GENOMIC MEDICINE RBC 4.53 4.20 - 5.50 m/uL [facility] DEPARTMENT OF PATHOLOGY AND GENOMIC MEDICINE HGB 12.8 12.0 - 16.0 g/dL [facility] DEPARTMENT OF PATHOLOGY AND GENOMIC MEDICINE HCT 37.0 37.0 - 47.0 % [facility] DEPARTMENT OF PATHOLOGY AND GENOMIC MEDICINE MCV 81.7 (L) 82.0 - 100.0 fL [facility] DEPARTMENT OF PATHOLOGY AND GENOMIC MEDICINE MCH 28.3 27.0 - 34.0 pg [facility] DEPARTMENT OF PATHOLOGY AND GENOMIC MEDICINE MCHC 34.6 31.0 - 37.0 g/dL [facility] DEPARTMENT OF PATHOLOGY AND GENOMIC MEDICINE RDW - SD 39.4 37.0 - 55.0 fL [facility] DEPARTMENT OF PATHOLOGY AND GENOMIC MEDICINE MPV 10.7 8.8 - 13.2 fL [facility] DEPARTMENT OF PATHOLOGY AND GENOMIC MEDICINE Platelet count 287 150 - 400 k/uL [facility] DEPARTMENT OF PATHOLOGY AND GENOMIC MEDICINE Nucleated RBC 0.00 /100 WBC [facility] DEPARTMENT OF PATHOLOGY AND GENOMIC MEDICINE Specimen Blood Performing Organization Address [facility] Centercode Phone Number [address] [place] [address] PATHOLOGY AND GENOMIC MEDICINE * ECG ED Preliminary Interpretation - NOT AN ORDER (09/07/2017 9:53 PM CHAIN MAKER) Narrative Performed At Rob Gray MD 09/07/20179:53 PM ECG ED Preliminary Interpretation - Not an Order Performed by: ROB GRAY Authorized by: ROB GRAY ECG reviewed by ED Physician in the absence of a bushel worker: yes Rate: ECG rate:77 ECG rate assessment: normal Rhythm: Rhythm: sinus rhythm Ectopy: Ectopy: PVCs ST segments: ST segments:Normal T waves: T waves: normal * Strep screen culture (09/07/2017 9:43 PM CHAIN MAKER) Strep screen culture No beta hemolytic Streptococci [facility] DEPARTMENT OF isolate isolated PATHOLOGY AND Comment: GENOMIC MEDICINE Specimen Information Specimen Source: Throat Specimen Site: Not otherwise specified Specimen Throat - Not otherwise specified Performing Organization Address City/State/Zipcode Phone Number [facility] DEPARTMENT OF [address] [place] [address] PATHOLOGY AND GENOMIC MEDICINE * Urinalysis screen and microscopy, with reflex to culture (09/07/2017 4:57 PM CHAIN MAKER) Specimen site Clean catch [facility] DEPARTMENT OF PATHOLOGY AND GENOMIC MEDICINE Color, UA Yellow [facility] DEPARTMENT OF PATHOLOGY AND GENOMIC MEDICINE Appearance, UA Slightly-Cloudy [facility] DEPARTMENT OF PATHOLOGY AND GENOMIC MEDICINE Specific gravity, UA 1.019 1.001 - 1.035 [facility] DEPARTMENT OF PATHOLOGY AND GENOMIC MEDICINE pH, UA 6.0 5.0 - 8.5 [facility] DEPARTMENT OF PATHOLOGY AND GENOMIC MEDICINE Protein, UA 1+ (A) Negative [facility] DEPARTMENT OF PATHOLOGY AND GENOMIC MEDICINE Glucose, UA Negative Negative [facility] DEPARTMENT OF PATHOLOGY AND GENOMIC MEDICINE Ketones, UA Negative Negative [facility] DEPARTMENT OF PATHOLOGY AND GENOMIC MEDICINE Bilirubin, UA Negative Negative [facility] DEPARTMENT OF PATHOLOGY AND GENOMIC MEDICINE Blood, UA Moderate (A) Negative [facility] DEPARTMENT OF PATHOLOGY AND GENOMIC MEDICINE Nitrite, UA Negative Negative [facility] DEPARTMENT OF PATHOLOGY AND GENOMIC MEDICINE Urobilinogen, UA Negative <2.0 [facility] DEPARTMENT OF PATHOLOGY AND GENOMIC MEDICINE Leukocyte esterase, UA Negative Negative [facility] DEPARTMENT OF PATHOLOGY AND GENOMIC MEDICINE Epithelial cells, UA Many /HPF [facility] DEPARTMENT OF PATHOLOGY AND GENOMIC MEDICINE WBC, UA 0-5 0 - 4 /HPF [facility] DEPARTMENT OF PATHOLOGY AND GENOMIC MEDICINE RBC, UA 0-5 0 - 2 /HPF [facility] DEPARTMENT OF PATHOLOGY AND GENOMIC MEDICINE Bacteria, UA None seen None seen [facility] DEPARTMENT OF PATHOLOGY AND GENOMIC MEDICINE Yeast, UA None seen [facility] DEPARTMENT OF PATHOLOGY AND GENOMIC MEDICINE Yeast with pseudohyphae, None seen [facility] DEPARTMENT [facility] PATHOLOGY AND GENOMIC MEDICINE Specimen Urine Performing Organization Address [facility] Centercode Phone Number [address] [place] [address] PATHOLOGY AND [employer] MEDICINE * hCG qualitative, urine screen (09/07/2017 4:57 PM CHAIN MAKER) hCG qualitative, urine Negative Negative [facility] DEPARTMENT OF Comment: PATHOLOGY AND The manufacturers stated [employer] MEDICINE sensitivity of HcG test for serum is >/=10 mIU/ml and urine is >/=20mIU/ml. Specimen Urine Performing Organization Address [facility] Cent[facility]ode Phone Number [address] [place] [address] PATHOLOGY AND [employer] MEDICINE * Estimated GFR (09/07/2017 4:50 PM CHAIN MAKER) GFR Non Af Amer 77 mL/min/1.73 m2 [facility] DEPARTMENT OF PATHOLOGY AND [employer] MEDICINE GFR Af Amer >90 mL/min/1.73 m2 [facility] DEPARTMENT OF Comment: PATHOLOGY AND Chronic kidney [...] Americans. Specimen Plasma specimen Performing Organization Address [facility] Cent[facility]ode Phone Number [address] [place] [address] PATHOLOGY AND [employer] MEDICINE * Troponin (09/07/2017 4:50 PM CHAIN MAKER) Troponin <0.300 0.000 - 0.300 ng/mL [facility] DEPARTMENT OF Comment: PATHOLOGY AND 0.30 - 1.49 GENOMIC MEDICINE ng/mlMay indicate increased risk of acute coronary syndrome. >=1.5 ng/ml Consistent with acute myocardial infarction. The diagnostic value of a single normal or non-diagnostic result is questionable.Serial samples at 2-6 hour intervals are required to rule out acute myocardial injury. Specimen Plasma specimen Performing Organization Address City/[facility]/Zipcode Phone Number [facility] [place] [address] [place] [address] PATHOLOGY AND GENOMIC MEDICINE * Group A strep, rapid antigen (09/07/2017 4:50 PM CHAIN MAKER) Group A strep, rapid Negative for Group A [facility] DEPARTMENT OF antigen result Streptococcus antigen. PATHOLOGY AND Comment: GENOMIC MEDICINE Specimen Information Specimen Source: Throat Specimen Site: Not otherwise specified Specimen Throat - Not otherwise specified Performing Organization Address [facility] Centercode Phone Number [facility] [place] [address] [place] [address] PATHOLOGY AND GENOMIC MEDICINE * CBC with platelet and differential (09/07/2017 4:50 PM CHAIN MAKER) WBC 8.92 4.50 - 11.00 k/uL [facility] DEPARTMENT OF PATHOLOGY AND GENOMIC MEDICINE RBC 4.51 4.20 - 5.50 m/uL [facility] DEPARTMENT OF PATHOLOGY AND GENOMIC MEDICINE HGB 12.5 12.0 - 16.0 g/dL [facility] DEPARTMENT OF PATHOLOGY AND GENOMIC MEDICINE HCT 36.0 (L) 37.0 - 47.0 % [facility] DEPARTMENT OF PATHOLOGY AND GENOMIC MEDICINE MCV 79.8 (L) 82.0 - 100.0 fL [facility] DEPARTMENT OF PATHOLOGY AND GENOMIC MEDICINE MCH 27.7 27.0 - 34.0 pg [facility] DEPARTMENT OF PATHOLOGY AND GENOMIC MEDICINE MCHC 34.7 31.0 - 37.0 g/dL [facility] DEPARTMENT OF PATHOLOGY AND GENOMIC MEDICINE RDW - SD 40.5 37.0 - 55.0 fL [facility] DEPARTMENT OF PATHOLOGY AND GENOMIC MEDICINE MPV 10.7 8.8 - 13.2 fL [facility] DEPARTMENT OF PATHOLOGY AND GENOMIC MEDICINE Platelet count 262 150 - 400 k/uL [facility] DEPARTMENT OF PATHOLOGY AND GENOMIC MEDICINE Nucleated RBC 0.00 /100 WBC [facility] DEPARTMENT OF PATHOLOGY AND GENOMIC MEDICINE Neutrophils 62.9 39.0 - 69.0 % [facility] DEPARTMENT OF PATHOLOGY AND GENOMIC MEDICINE Lymphocytes 28.5 25.0 - 45.0 % [facility] DEPARTMENT OF PATHOLOGY AND GENOMIC MEDICINE Monocytes 7.1 0.0 - 10.0 % [facility] DEPARTMENT OF PATHOLOGY AND GENOMIC MEDICINE Eosinophils 0.8 0.0 - 5.0 % [facility] DEPARTMENT OF PATHOLOGY AND GENOMIC MEDICINE Basophils 0.4 0.0 - 1.0 % [facility] DEPARTMENT OF PATHOLOGY AND GENOMIC MEDICINE Immature granulocytes 0.3Comment: "Immature 0.0 - 1.0 % [facility] DEPARTMENT OF granulocytes" (promyelocytes, PATHOLOGY AND myelocytes, metamyelocytes) GENOMIC MEDICINE Specimen Blood Performing Organization Address [facility] Phone Number [address] [place] [address] PATHOLOGY AND GENOMIC MEDICINE * Influenza antigen (09/07/2017 4:50 PM CHAIN MAKER) Influenza antigen Negative for Influenza A/B [facility] DEPARTMENT OF antigen. PATHOLOGY AND Comment: [facility] MEDICINE Specimen Information Specimen Source: Nares Specimen Site: Not specified Specimen Nares - Not specified Performing Organization Address [facility] Phone Number [address] [place] [address] PATHOLOGY AND [facility] * B natriuretic peptide (09/07/2017 4:50 PM CHAIN MAKER) BNP 26 0 - 100 pg/mL [facility] DEPARTMENT OF PATHOLOGY AND [facility] MEDICINE Specimen Blood Performing Organization Address [facility] Phone Number [address] [place] [address] PATHOLOGY AND [facility] * Magnesium level (09/07/2017 4:50 PM CHAIN MAKER) Magnesium 1.9 1.6 - 2.6 mg/dL [facility] DEPARTMENT OF PATHOLOGY AND GENOMIC MEDICINE Specimen Plasma specimen Performing Organization Address [facility] Number [address] [place] [address] PATHOLOGY AND GENOMIC MEDICINE * Basic metabolic panel (09/07/2017 4:50 PM CHAIN MAKER) Sodium 137 135 - 148 mEq/L [facility] DEPARTMENT OF PATHOLOGY AND GENOMIC MEDICINE Potassium 3.5 3.5 - 5.0 mEq/L [facility] DEPARTMENT OF PATHOLOGY AND GENOMIC MEDICINE Chloride 98 98 - 112 mEq/L [facility] DEPARTMENT OF PATHOLOGY AND GENOMIC MEDICINE CO2 25 24 - 31 mEq/L [facility] DEPARTMENT OF PATHOLOGY AND GENOMIC MEDICINE Anion gap 14 7 - 15 mEq/L [facility] DEPARTMENT OF Comment: PATHOLOGY AND Starting from December [facility] , anion gap calculation no longer incorporates potassium. Please note the change. BUN 15 6 - 20 mg/dL [facility] DEPARTMENT OF PATHOLOGY AND GENOMIC MEDICINE Creatinine 0.8 0.5 - 0.9 mg/dL [facility] DEPARTMENT OF PATHOLOGY AND GENOMIC MEDICINE Glucose 85 65 - 99 mg/dL [facility] DEPARTMENT OF PATHOLOGY AND GENOMIC MEDICINE Calcium 9.3 8.3 - 10.2 mg/dL [facility] DEPARTMENT OF PATHOLOGY AND GENOMIC MEDICINE Specimen Plasma specimen Performing Organization Address City/State/Zipcode Phone Number [facility] DEPARTMENT [address] [place] [address] PATHOLOGY AND GENOMIC MEDICINE after 08/18/2017 Insurance Payer Benefit Subscriber ID Type Phone Address Plan / Group [employer]IG[employer] CIGNA OPEN xxxxxxxxxxx HMO ACCESS/NET WORK Advance Directives Patient has advance care planning documents on file. For more information, mina owens contact: Mika Brooke [address] [place] [address]
[2018-08-19] MEDS ORDERED: DIPHENHYDRAMINE HCL INJ 50 MG/ML VIAL IV ONE (14:00)
[2018-08-19] MEDS ORDERED: FAMOTIDINE 20 MG/2 ML VIAL IV ONE (14:00)
[2018-08-19] MEDS ORDERED: ALBUTEROL/IPRATROPIUM 3 ML NEB NEB ONE (14:00)
[2018-08-19] MEDS ORDERED: METHYLPREDNISOLONE SOD SUCC 125 MG/2ML VIAL IV ONE (14:00)
[2018-08-19] MEDS ORDERED: ACETAMINOPHEN 325 MG TAB PO ONE ×2 (15:00→15:30)
[2018-08-19] MEDS ORDERED: ONDANSETRON HCL INJ 2 MG/ML VIAL IV ONE (15:30)
[2018-08-19] MEDS ORDERED: SODIUM CHLORIDE 0.9% 1000ML 1,000 ML IV STA (19:29)
== END 2018-08-19 16:33 | disposition home or self-care (01) ==
LOC: FSED 13:37
DX: R06.09 Other forms of dyspnea (principal); J98.01 Acute bronchospasm; T78.3XXA Angioneurotic edema, initial encounter
CPT/HCPCS: 99284; J1200; J2405; J2930

== ENCOUNTER 2022-02-05 11:17 | Emergency (ER) | payer OTHER ==
[~2022-02-05] VITALS: Ht 170.2 cm; Wt 81.6 kg
[2022-02-05] MEDS ORDERED: SODIUM CHLORIDE 0.9% 1000ML 1,000 ML IV SCH (12:15)
[2022-02-05] MEDS ORDERED: PROMETHAZINE 12.5MG/ NACL 0.9% 12.5 MG/50 ML BAG IV ONE (12:15)
[2022-02-05] MEDS ORDERED: PROMETHAZINE HCL (IM) 25 MG/ML VIAL IM ONE (13:09)
[2022-02-05] MEDS ORDERED: FAMOTIDINE 20 MG/2 ML VIAL IV ONE (13:09)
[2022-02-05] MEDS ORDERED: SODIUM CHLORIDE 0.9% 1000ML 1,000 ML ONE (13:09)
[2022-02-05] MEDS ORDERED: PROMETHAZINE HC25 M1 PO (16:59)
[2022-02-05] MEDS ORDERED: SUCRALFATE1 GM PO (17:02)
[2022-02-05 17:08] VITALS: BP 119/68
[2022-02-05] MEDS ORDERED: IOPAMIDOL 370 MG/ML 100 ML INFUS..BTL INJ ONE (18:28)
[2022-02-06] MEDS ORDERED: FAMOTIDINE 20 MG/2 ML VIAL IV SCH (09:00)
== END 2022-02-05 17:11 | disposition home or self-care (01) ==
LOC: FSED 11:56
DX: K58.9 Irritable bowel syndrome, unspecified (principal); E78.5 Hyperlipidemia, unspecified; I10 Essential (primary) hypertension; R11.2 Nausea with vomiting, unspecified; Z88.8 Allergy status to other drugs, medicaments and biological substances; Z87.440 Personal history of urinary (tract) infections
CPT/HCPCS: 74177; 80048; 80076; 81003; 82553; 84484; 85025; 96374; 96376; 99283; J2550; J7030; Q9967